=== PATIENT | male | born 1950 | race Caucasian/White ===

== ENCOUNTER 2022-05-25 15:37 | Emergency (ER) | payer MEDICARE, BC ==
[2022-05-25] MEDS ORDERED: traMADol 50 MG Tab PO ONE (16:31)
[2022-05-25] MEDS ORDERED: Ibuprofen 600 MG Tab PO ONE (16:31)
== END 2022-05-25 18:29 | disposition home or self-care (01) ==
LOC: MW.ED 15:37
DX: S72.431A Displaced fracture of medial condyle of right femur, initial encounter for closed fracture (principal); E78.00 Pure hypercholesterolemia, unspecified; I10 Essential (primary) hypertension; N40.0 Benign prostatic hyperplasia without lower urinary tract symptoms; Z79.82 Long term (current) use of aspirin; Z79.899 Other long term (current) drug therapy; W18.30XA Fall on same level, unspecified, initial encounter
CPT/HCPCS: 73562; 73590; 99283; A9270

== ENCOUNTER 2024-01-06 08:50 | Day surgery (SDC) | payer MEDICARE, BC ==
[2024-01-06] MEDS ORDERED: Ketamine HCL/NACL, ISO-OSM 50 MG/5 ML Syringe ONE (09:12)
[2024-01-06] MEDS ORDERED: propofoL 50 ML ONE (09:12)
[2024-01-06] MEDS: Lactated Ringers 1,000 ML IV SCH (09:14)
[2024-01-06] MEDS ORDERED: Lidocaine 2% 5 ML SDV ONE (09:49)
[2024-01-06] MEDS ORDERED: Glycopyrrolate 0.2 MG/ML SDV ONE (10:03)
== END 2024-01-06 11:30 | disposition home or self-care (01) ==
LOC: MW.SDS 08:50
PROVIDERS: ATTEND Surgery
DX: D12.6 Benign neoplasm of colon, unspecified (principal); K52.9 Noninfective gastroenteritis and colitis, unspecified; K31.7 Polyp of stomach and duodenum; K57.30 Diverticulosis of large intestine without perforation or abscess without bleeding; K64.8 Other hemorrhoids; K21.9 Gastro-esophageal reflux disease without esophagitis; I10 Essential (primary) hypertension; E78.00 Pure hypercholesterolemia, unspecified; N40.0 Benign prostatic hyperplasia without lower urinary tract symptoms; F41.9 Anxiety disorder, unspecified; Z79.899 Other long term (current) drug therapy
CPT/HCPCS: 43239; 45380; J1596; J2704; J7120; 00813; 88305; 99100; J3490

== ENCOUNTER 2024-01-12 11:46 | Emergency (ER) | payer MEDICARE, BC ==
[2024-01-12] MEDS: Acetaminophen/HYDROcodone 325-5 MG Tab PO ONE (12:14)
== END 2024-01-12 13:09 | disposition home or self-care (01) ==
LOC: MW.ED 11:46
DX: S20.211A Contusion of right front wall of thorax, initial encounter (principal); E78.00 Pure hypercholesterolemia, unspecified; I10 Essential (primary) hypertension; K21.9 Gastro-esophageal reflux disease without esophagitis; M19.90 Unspecified osteoarthritis, unspecified site; Z90.49 Acquired absence of other specified parts of digestive tract; Z79.82 Long term (current) use of aspirin; Z79.899 Other long term (current) drug therapy; Z75.8 Other problems related to medical facilities and other health care; W01.0XXA Fall on same level from slipping, tripping and stumbling without subsequent striking against object, initial encounter
CPT/HCPCS: 71101; 93005; 99283; A9270; 93010

== ENCOUNTER 2024-12-04 12:02 | Emergency (ER) | payer MEDICARE, BC ==
[2024-12-04 12:16] LABS: BASOPHILS ABSOLUTE AUTO 0.04 K/uL (0.00-0.20); BASOPHILS PERCENT AUTO 0.7 % (0.0-1.0); EOSINOPHILS ABSOLUTE AUTO 0.06 K/uL (0.00-0.45); EOSINOPHILS PERCENT AUTO 1.0 % (0.0-6.0); IMMATURE GRAN ABSOLUTE AUTO 0.01 K/uL (0.00-0.05); IMMATURE GRAN PERCENT AUTO 0.2 % (0.0-0.4); LYMPHOCYTES ABSOLUTE AUTO 1.84 K/uL (1.00-4.80); LYMPHOCYTES PERCENT AUTO 30.6 % (24.0-44.0); MEAN PLATELET VOLUME 9.8 fL (9.4-12.4); MONOCYTES ABSOLUTE AUTO 0.66 K/uL (0.00-0.80); MONOCYTES PERCENT AUTO 11.0 % (0.0-8.0); NEUTROPHILS ABSOLUTE AUTO 3.40 K/uL (1.80-7.70); NEUTROPHILS PERCENT AUTO 56.5 % (41.0-71.0); NRBC ABSOLUTE 0.00 K/uL (0.00-0.02); NRBC PERCENT 0.0 /100WBC (0.0-0.2); PLATELET COUNT,PLT 169 K/uL (150-400); RED BLOOD CELL COUNT 4.86 M/uL (4.52-5.90); WHITE BLOOD CELL COUNT,WBC 6.01 K/uL (3.9-11.3)
[2024-12-04 12:28] LABS: INR 1.06 (0.86-1.11); PTT,PARTIAL THROMBOPLSTIN TIME 26.1 SEC (23.9-30.7)
[2024-12-04 12:42] LABS: A/G RATIO 1.4 (0.9-1.6); ALANINE AMINOTRANSFERASE,ALT 20.0 IU/L (14-63); ASPARTATE AMNIOTRANSFERASE,AST 13.0 IU/L (15-37); BILIRUBIN TOTAL 1.0 mg/dL (0.2-1.0); BLOOD UREA NITROGEN,BUN 22.0 mg/dL (7.0-18.0); CARBON DIOXIDE,CO2 30.8 mmol/L (21.0-32.0); CHLORIDE,CL 105.0 mmol/L (98-107); CREATININE 1.1 mg/dL (0.8-1.3); EST CRCL DRUG DOSING (CG) 66.58 mL/min; ESTIMATED GFR 70.0 mL/min (>60); GLUCOSE RANDOM 106.0 mg/dL (74-106); POTASSIUM,K 3.5 mmol/L (3.5-5.1); PROTEIN TOTAL,TP 7.1 g/dL (6.4-8.2); SODIUM,NA 143.0 mmol/L (136-148)
[2024-12-04 12:50] LABS: LACTIC ACID 0.8 mmol/L (0.4-2.0)
[2024-12-04] MEDS: Nitroglycerin 0.4 MG Tab.SL SL PRN (13:24)
[2024-12-04] MEDS: Ondansetron 4 MG/2 ML SDV IVPUSH ONE (14:12)
== END 2024-12-04 16:24 | disposition home or self-care (01) ==
LOC: MW.ED 12:02
DX: R07.89 Other chest pain (principal); I10 Essential (primary) hypertension; E78.00 Pure hypercholesterolemia, unspecified; M19.90 Unspecified osteoarthritis, unspecified site; Z75.3 Unavailability and inaccessibility of health-care facilities; Z79.82 Long term (current) use of aspirin; Z79.899 Other long term (current) drug therapy; Z90.49 Acquired absence of other specified parts of digestive tract
CPT/HCPCS: 36415; 71046; 71250; 80053; 83605; 83690; 83735; 84484; 85025; 85610; 85730; 93005; 96374; 96375; 99285; A9270; J2270; J2405; 93010; 99284